=== PATIENT | female | born 1965 | race Caucasian/White ===

== ENCOUNTER 2024-08-30 21:25 | Emergency (ER) | payer OTHER ==
[2024-08-30 21:40] VITALS: TEMP 98.3
[2024-08-30 22:02] LABS: Appearance Clear (Clear); Bacteria None Seen /HPF (None Seen); Bilirubin Negative (Negative); Blood Negative (Negative); Epithelial Cells None Seen /HPF (None Seen); Glucose, Urine Negative (Negative); Hyaline Casts NONE SEEN /LPF (0-2); Ketones 15 (Negative); Leukocyte Esterase Small (Negative); Nitrite Negative (Negative); Ph 8.5 (4.6-8.0); Protein,Urine Dip Negative (Negative); RBC 0-2 /HPF (0-5); Specific Gravity 1.015 (1.005-1.030); Urobilinogen 0.2 mg/dL (0.2)
[2024-08-30 22:13] LABS: Amphetamine,Urine NEGATIVE (NEGATIVE); Barbiturate,Urine NEGATIVE (NEGATIVE); Benzodiazepine,Urine NEGATIVE (NEGATIVE); Cocaine,Urine NEGATIVE (NEGATIVE); Methadone,Urine NEGATIVE (NEGATIVE); Opiate,Urine NEGATIVE (NEGATIVE); PCP,Urine NEGATIVE (NEGATIVE); THC,Urine NEGATIVE (NEGATIVE)
[2024-08-30] MEDS: Sodium Chloride 0.9% 1000 ML 1,000 ML IV STA (22:20)
[2024-08-30] MEDS ORDERED: Sodium Chloride 0.9% 1000 ML 1,000 ML ONE (22:20)
[2024-08-30 22:21] LABS: Absolute Neutrophil Ct (ANC) 17.41 x10^3/uL (1.56-6.13); BASOPHIL % 0.4 % (0.1-1.2); Basophil (Absolute #) 0.09 x10^3/uL (0.01-0.08); Eosinophil % 0.4 % (0.7-5.8); Eosinophil (Absolute #) 0.08 x10^3/uL (0.04-0.36); Hematocrit 37.2 % (34.1-44.9); Hemoglobin 12.8 g/dL (11.2-15.7); IMMATURE GRAN % 0.5 % (0.001-0.429); Lymphocyte (Absolute #) 1.33 x10^3/uL (1.18-3.74); Lymphocytes % 6.6 % (19.3-51.7); Mean Cell Volume 86.3 fL (79.4-94.8); Mean Corpuscular Hemoglobin 29.7 pg (25.6-32.2); Mean Corpuscular Hgb Concent. 34.4 g/dL (32.2-35.5); Mean Platelet Volume 9.1 fL (9.4-12.3); Monocyte (Absolute #) 1.11 x10^3/uL (0.24-0.86); Monocytes % 5.5 % (4.7-12.5); Neutrophil % 86.6 % (34.0-71.1); Platelet Count 276 x10^3/uL (182-369); Red Blood Count 4.31 x10^6/uL (3.93-5.22); Red Cell Distribution Width 12.6 % (11.7-14.4); White Blood Count 20.1 x10^3/uL (3.98-10.04)
[2024-08-30 22:35] LABS: ACETAMINOPHEN < 10 ug/ml (10-30); ALBUMIN 4.7 g/dL (3.5-5.0); ALKALINE PHOSPHATASE 118 U/L (38-126); BLOOD UREA NITROGEN 15 mg/dL (7-17); CHLORIDE 100 mmol/L (98-107); Calcium 9.8 mg/dL (8.4-10.2); Carbon Dioxide 22 mmol/L (22-30); Creatinine 1 0.94 mg/dL (0.52-1.04); EST GLOMERULAR FILTRATION RATE 71.2 ML/MIN; Glucose 105 mg/dL (74-106); Potassium 4.2 mmol/L (3.5-5.1); SALICYLATE < 1.0 mg/dL (2-20); SGOT/AST 40 U/L (14-36); SGPT/ALT 21 U/L (0-35); SODIUM 136 mmol/L (135-145); Total Protein 7.6 g/dL (6.3-8.2)
--- NOTE | 2024-08-31 01:07 | ERPHSYRPT ---
- History of Present Illness Time Seen by Provider: 08/30/24 21:26 Source: patient, family Exam Limitations: no limitations Patient Subjective Stated Complaint: c/o overdose. Patient states she took 3 propanolol pills due to anxiety Triage Nursing Assessment: patient brought into ED with c/o overdose. patient stated that her was freaking out because she took 3 propranolol pills due to her anxiety. made her throw up and brought her in. patient denies tryinto harm herself, states he took them on purpose, and that she denies suicial thoughts. vitals wnl, skin w/n/d, patient doesn't appear to be in any distress at this time. Physician History: 58 years old female with history of anxiety/depression, recent admission at [facility] for TCA overdose with psychiatric consultation who has seen [facility] residents [facility] earlier today presented with complaint of propranolol overdose. Patient reports she was very anxious and took [id number] 3 propranolol 60 mg each starting around 7:30 PM and last 1 took around 8:30 PM. After that her who is an EMT team made her gag and she vomited. Complaining of mild abdominal pain. Denies any chest pain palpitations or shortness of breath. Denies feeling dizzy or lightheaded. Patient reports she did not took it for overdose but more to help with her anxiety symptoms. Patient's reports she told him taking 30 pills at 1 time and at another time reported she took a bunch. She was out in the [place] gagging. He is concerned that with her history it is quite possible to have another suicidal attempt. Patient continues to deny. We have called poison control who recommended symptomatic care and observation for 6 hours before she can be medically clear. Allergies/Adverse Reactions: No Known Drug Allergies Allergy (Verified 08/30/24 21:29) Home Medications: Dextroamphetamine/Amphetamine [Adderall Xr 30 mg Capsule] 25 mg PO DAILY 08/30/24 [History] Propranolol HCl 20 mg PO TID PRN 08/30/24 [History] Levothyroxine Sodium 50 Mcg [Synthroid 50 Mcg] 50 mcg PO DAILY 08/31/24 [History] Triamterene/Hydrochlorothiazid [Triamterene-Hctz 37.5-25 mg Tb] 1 tab PO DAILY 08/31/24 [History] Hx Tetanus, Diphtheria Vaccination/Date Given: Yes Hx Influenza Vaccination/Date Given: No Hx Pneumococcal Vaccination/Date Given: No Travel Risk - International Travel Have you traveled outside of the country in past 3 weeks: No - Emerging Infectious Disease Are you exhibiting symptoms associated with any current EIDs: No Symptoms: Abdominal Pain - Review of Systems Constitutional: No Symptoms Eyes: No Symptoms Ears, Nose, & Throat: No Symptoms Respiratory: No Symptoms Cardiac: No Symptoms Abdominal/Gastrointestinal: Abdominal Pain, Nausea, Vomiting Genitourinary Symptoms: No Symptoms Musculoskeletal: No Symptoms Skin: No Symptoms Psychological: Anxiety, Depression Endocrine: No Symptoms Hematologic/Lymphatic: No Symptoms Immunological/Allergic: No Symptoms - Past Medical History Pertinent Past Medical History: Yes Neurological History: Other Cardiac History: Other Respiratory History: No Pertinent History Endocrine Medical History: Hypothyroidism Musculoskeletal History: No Pertinent History GI Medical History: No Pertinent History History: No Pertinent History Psycho-Social History: Anxiety, Depression Female Reproductive Disorders: No Pertinent History Other Medical History: right bundle branch block - Past Surgical History Past Surgical History: No - Social History Smoking Status: Never smoker Exposure to second hand smoke: No Drug Use: none - Social Determinants of Health Will the patient participate in the screening: Yes Do you worry about a steady place to live?: No Do you have any problems with any of the following?: No known problems In the past 12 months,have you had to go without utilities?: No Transportation Issues: No Has anyone in your support network made you feel unsafe?: No Have you or anyone in your house had to go w/o enough food: No - Nursing Vital Signs Nursing Vital Signs: Initial Vital Signs Temperature 98.3 F 08/30/24 21:29 Pulse Rate 68 08/30/24 21:29 Respiratory Rate 18 08/30/24 21:29 Blood Pressure 129/75 08/30/24 21:29 O2 Sat by Pulse Oximetry 99 08/30/24 21:29 Pain Scale Pain Intensity 6 - Physical Exam General Appearance: no apparent distress, alert, anxiety Eye Exam: PERRL/EOMI, EOM palsy/anisocoria Neck Exam: normal inspection, non-tender, supple, full range of motion Respiratory Exam: normal breath sounds, lungs clear Cardiovascular Exam: regular rate/rhythm, normal heart sounds Gastrointestinal/Abdomen Exam: soft, normal bowel sounds, No tenderness Back Exam: normal inspection, normal range of motion Extremity Exam: normal inspection, normal range of motion Neurologic Exam: alert, oriented x 3, cooperative, advertising editor II-XII nml as tested, nml cerebellar function, nml station & gait, sensation nml, No normal mood/affect (Flat affect), No motor deficits Skin Exam: normal color SpO2 Interpretation: normal SpO2: 96 O2 Delivery: Room Air - Course EKG Interpreted by Me: RATE ([id number]), Sinus Rhythm, NORMAL AXIS, NORMAL INTERVALS, NORMAL QRS Ordered Tests: Active Orders 24 hr Category Date Time Status Clean Catch Urine Specimen STAT Care 08/30/24 21:53 Completed EKG-ER Only STAT Care 08/30/24 22:11 Completed IV Insertion STAT Care 08/30/24 22:11 Completed ACETAMINOPHEN Stat Lab 08/30/24 22:15 Completed CBC W DIFF Stat Lab 08/30/24 22:15 Completed CMP Stat Lab 08/30/24 22:15 Completed SALICYLATE Stat Lab 08/30/24 22:15 Completed TROPONIN Q4H Lab 08/30/24 22:15 Completed TROPONIN Q4H Lab 08/31/24 02:30 Completed UA W/RFX UR CULTURE Stat Lab 08/30/24 21:53 Completed Urine Triage Profile Stat Lab 08/30/24 21:53 Completed Medication Summary Discontinued Medications Generic Name Dose Route Start Last Admin Trade Name Norris PRN Reason Stop Dose Admin Sodium Chloride 1,000 mls @ 999 mls/hr 08/30/24 22:11 08/30/24 23:20 Sodium Chloride 0.9% 1000 Ml IV 08/30/24 23:11 Infused .Q1H1M STA Infusion Sodium Chloride Confirm 08/30/24 22:20 Sodium Chloride 0.9% 1000 Ml Administered 08/30/24 22:21 Dose 1,000 mls @ ud .ROUTE .STK-MED ONE Lab/Rad Data: Laboratory Result Diagrams 08/30/24 22:15 08/30/24 22:15 Laboratory Results 08/31/24 08/30/24 08/30/24 Range/Units 02:30 22:15 22:15 WBC (3.98-10.04) x10^3/uL RBC (3.93-5.22) x10^6/uL Hgb (11.2-15.7) g/dL Hct (34.1-44.9) % MCV (79.4-94.8) fL MCH (25.6-32.2) pg MCHC (32.2-35.5) g/dL RDW (11.7-14.4) % Plt Count (182-369) x10^3/uL MPV (9.4-12.3) fL Gran % (34.0-71.1) % Immature Gran % (Auto) (0.001-0.429) % Nucleat RBC Rel Count (0.00-0.2) % Eos # (Auto) (0.04-0.36) x10^3/uL Immature Gran # (Auto) (0.001-0.031) x10^3u/L Absolute Lymphs (auto) (1.18-3.74) x10^3/uL Absolute Monos (auto) (0.24-0.86) x10^3/uL Absolute Nucleated RBC (0.00-0.012) x10^3u/L Lymphocytes % (19.3-51.7) % Monocytes % (4.7-12.5) % Eosinophils % (0.7-5.8) % Basophils % (0.1-1.2) % Absolute Granulocytes (1.56-6.13) x10^3/uL Basophils # (0.01-0.08) x10^3/uL Sodium 136 (135-145) mmol/L Potassium 4.2 (3.5-5.1) mmol/L Chloride 100 (98-107) mmol/L Carbon Dioxide 22 (22-30) mmol/L Anion Gap 19.0 H (5-15) MEQ/L BUN 15 (7-17) mg/dL Creatinine 0.94 (0.52-1.04) mg/dL Estimated GFR 71.2 ML/MIN Glucose 105 (74-106) mg/dL Calcium 9.8 (8.4-10.2) mg/dL Total Bilirubin 1.10 (0.2-1.3) mg/dL AST 40 H (14-36) U/L ALT 21 (0-35) U/L Alkaline Phosphatase 118 (38-126) U/L Troponin I < 0.012 < 0.012 (0.000-0.033) ng/mL Serum Total Protein 7.6 (6.3-8.2) g/dL Albumin 4.7 (3.5-5.0) g/dL Urine Color (Yellow) Urine Appearance (Clear) Urine pH (4.6-8.0) Ur Specific [place] (1.005-1.030) Urine Protein (Negative) Urine Glucose (UA) (Negative) mg/dL Urine Ketones (Negative) Urine Blood (Negative) Urine Nitrite (Negative) Urine Bilirubin (Negative) Urine Urobilinogen (0.2) mg/dL Ur Leukocyte Esterase (Negative) U Hyaline Cast (Auto) (0-2) /LPF Urine Microscopic RBC (0-5) /HPF Urine Microscopic WBC (0-5) /HPF Ur Epithelial Cells (None Seen) /HPF Urine Bacteria (None Seen) /HPF Urine Culture Reflexed (NO) Salicylates < 1.0 L (2-20) mg/dL Urine Opiates Level (NEGATIVE) Ur Methadone (NEGATIVE) Acetaminophen < 10 L (10-30) ug/ml Urine Barbiturates (NEGATIVE) Ur Phencyclidine (PCP) (NEGATIVE) Urine Amphetamine (NEGATIVE) U Benzodiazepine Level (NEGATIVE) Urine Cocaine (NEGATIVE) Urine Marijuana (THC) (NEGATIVE) 08/30/24 08/30/24 08/30/24 Range/Units 22:15 21:53 21:53 WBC 20.1 H (3.98-10.04) x10^3/uL RBC 4.31 (3.93-5.22) x10^6/uL Hgb 12.8 (11.2-15.7) g/dL Hct 37.2 (34.1-44.9) % MCV 86.3 (79.4-94.8) fL MCH 29.7 (25.6-32.2) pg MCHC 34.4 (32.2-35.5) g/dL RDW 12.6 (11.7-14.4) % Plt Count 276 (182-369) x10^3/uL MPV 9.1 L (9.4-12.3) fL Gran % 86.6 H (34.0-71.1) % Immature Gran % (Auto) 0.5 H (0.001-0.429) % Nucleat RBC Rel Count 0.0 (0.00-0.2) % Eos # (Auto) 0.08 (0.04-0.36) x10^3/uL Immature Gran # (Auto) 0.10 H (0.001-0.031) x10^3u/L Absolute Lymphs (auto) 1.33 (1.18-3.74) x10^3/uL Absolute Monos (auto) 1.11 H (0.24-0.86) x10^3/uL Absolute Nucleated RBC 0.00 (0.00-0.012) x10^3u/L Lymphocytes % 6.6 L (19.3-51.7) % Monocytes % 5.5 (4.7-12.5) % Eosinophils % 0.4 L (0.7-5.8) % Basophils % 0.4 (0.1-1.2) % Absolute Granulocytes 17.41 H (1.56-6.13) x10^3/uL Basophils # 0.09 H (0.01-0.08) x10^3/uL Sodium (135-145) mmol/L Potassium (3.5-5.1) mmol/L Chloride (98-107) mmol/L Carbon Dioxide (22-30) mmol/L Anion Gap (5-15) MEQ/L BUN (7-17) mg/dL Creatinine (0.52-1.04) mg/dL Estimated GFR ML/MIN Glucose (74-106) mg/dL Calcium (8.4-10.2) mg/dL Total Bilirubin (0.2-1.3) mg/dL AST (14-36) U/L ALT (0-35) U/L Alkaline Phosphatase (38-126) U/L Troponin I (0.000-0.033) ng/mL Serum Total Protein (6.3-8.2) g/dL Albumin (3.5-5.0) g/dL Urine Color Yellow (Yellow) Urine Appearance Clear (Clear) Urine pH 8.5 A (4.6-8.0) Ur Specific [place] 1.015 (1.005-1.030) Urine Protein Negative (Negative) Urine Glucose (UA) Negative (Negative) mg/dL Urine Ketones 15 A (Negative) Urine Blood Negative (Negative) Urine Nitrite Negative (Negative) Urine Bilirubin Negative (Negative) Urine Urobilinogen 0.2 (0.2) mg/dL Ur Leukocyte Esterase Small A (Negative) U Hyaline Cast (Auto) NONE SEEN (0-2) /LPF Urine Microscopic RBC 0-2 (0-5) /HPF Urine Microscopic WBC 6-10 A (0-5) /HPF Ur Epithelial Cells None Seen (None Seen) /HPF Urine Bacteria None Seen (None Seen) /HPF Urine Culture Reflexed NO (NO) Salicylates (2-20) mg/dL Urine Opiates Level NEGATIVE (NEGATIVE) Ur Methadone NEGATIVE (NEGATIVE) Acetaminophen (10-30) ug/ml Urine Barbiturates NEGATIVE (NEGATIVE) Ur Phencyclidine (PCP) NEGATIVE (NEGATIVE) Urine Amphetamine NEGATIVE (NEGATIVE) U Benzodiazepine Level NEGATIVE (NEGATIVE) Urine Cocaine NEGATIVE (NEGATIVE) Urine Marijuana (THC) NEGATIVE (NEGATIVE) - Progress Progress: improved Progress Note: 08/31/24 01:06 58 years old is evaluated in the ER for propranolol overdose which according to patient she took only 3 for her anxiety symptoms but per she might have taken more with her previous history of suicidal attempts. Although patient continues to deny having any suicidal or homicidal ideations. EKG is sinus rhythm with no acute ischemic changes. Has no episodes of bradycardia, no hypotension throughout her stay in the ER. She is given fluid bolus. Patient remained asymptomatic calm and cooperative. Workup showed white count of 20, chemistries with some element of mild dehydration otherwise fairly unremarkable and urine drug screen is negative. She is medically clear and behavioral health evaluation will be obtained. 08/31/24 05:[address] [facility], do not think patient is a threat to self or anyone else, recommended safety plan which patient signed and she agreed to go home with her who would keep all her medications in a locked place and he does agree with that. She is advised to keep appointment with her PCP/psychiatry/therapist and also discussed signs symptoms of worsening needing return to ER and understanding. Stable for discharge. Counseled pt/family regarding: lab results, diagnosis Medical Desision Making - Diagnostic Testing Diagnostic test were ordered, analyzed, and reviewed by me: No - Risk of complications The pt has a mod risk of morbidity or mortality based on: Need for prescription drug management - Departure Departure Disposition: Home Clinical Impression: Anxiety, Depressive disorder, Drug overdose Condition: Stable Critical Care Time: No Referrals: DOCTOR,NO FAMILY [Primary Care Provider, UNKNOWN] - Follow up with PCP 1 day Instructions: Accidental Overdose (DC) Additional Instructions: Follow-up with therapist and primary care doctor. Take medications as prescribed. If you are having suicidal ideations, call 911 or return to ER. Return to ER if you are experiencing chest pain, heart palpitations, or difficulty breathing.
[2024-08-31 05:09] VITALS: BP 107/60; PULSE 81; RESP 20
[2024-08-31 06:49] VITALS: O2SAT 96
== END 2024-08-31 05:16 | disposition home or self-care (01) ==
LOC: ED 21:25
DX: F41.9 Anxiety disorder, unspecified (principal); F32.A Depression, unspecified; T44.7X1A Poisoning by beta-adrenoreceptor antagonists, accidental (unintentional), initial encounter; R10.9 Unspecified abdominal pain; Z79.899 Other long term (current) drug therapy
CPT/HCPCS: 36415; 80053; 80143; 80179; 80307; 81001; 84484; 85025; 93005; 96360; 99284; Q3014